=== PATIENT | male | born 1980 ===

== ENCOUNTER 2019-03-01 22:29 | Emergency (ER) | payer MEDICAID ==
[2019-03-01 23:09] VITALS: PULSE 62; RESP 18; O2SAT 98
[2019-03-01] MEDS ORDERED: Albuterol-Ipratrop 3 mg / 0.5 (3 ml) UD ONE ×2 (23:13→23:37)
--- NOTE | 2019-03-01 23:47 | C.PDOC ---
History Of Present Illness 38 year old male presents to the ED c/o SOB associated with productive cough that started today. Patient also reports having fever of 100.2. Patient is a smoker. Patient denies headache, dizziness, CP, palpitations, rash, abdominal pain, weakness, numbness. Time Seen by Provider: 03/01/19 22:59 Chief Complaint (Nursing): Shortness Of Breath History Per: Patient History/Exam Limitations: no limitations Onset/Duration Of Symptoms: Hrs Current Symptoms Are (Timing): Still Present Initiating Event: Upper Respiratory Illness Quality: Tightness Exacerbating Factor(s): Coughing Current Respiratory Medications: Albuterol Associated Symptoms: Productive Cough Recent travel outside of the [place]: No Additional History Per: Patient Past Medical History Reviewed: Historical Data, Nursing Documentation, Vital Signs Vital Signs: Last Vital Signs Temp 99.1 F 03/01/19 23:01 Pulse 62 03/01/19 23:01 Resp 18 03/01/19 23:01 BP 115/75 03/01/19 23:01 Pulse Ox 98 03/01/19 23:01 Primary Care Provider: Non [facility] Provider, - Medical History PMH: No Chronic Diseases Surgical History: No Surg Hx Family History: States: Unknown Family Hx - Social History Hx Alcohol Use: No Hx Substance Use: No Review Of Systems Constitutional: Positive for: Fever. Negative for: Chills ENT: Negative for: Nose Discharge, Nose Congestion, Throat Pain Respiratory: Positive for: Cough, Shortness of Breath. Negative for: Sputum, Wheezing Gastrointestinal: Negative for: Nausea, Vomiting, Abdominal Pain Skin: Negative for: Rash Neurological: Negative for: Headache, Dizziness Physical Exam - Physical Exam Appears: Non-toxic, No Acute Distress (NARD) Skin: Normal Color, Warm, Dry Head: Atraumatic, Normacephalic Eye(s): bilateral: Normal Inspection Neck: Normal ROM, Supple Chest: Symmetrical Cardiovascular: Rhythm Regular Respiratory: No Rales, Rhonchi (scattered), Wheezing (expiratory), Other (speaking full setences, good air entry) Gastrointestinal/Abdominal: Soft, No Tenderness, No Distention Extremity: Normal ROM, No Tenderness, No Swelling Neurological/Psych: Oriented x3, Normal Speech, Normal Cognition Gait: Steady ED Course And Treatment O2 Sat by Pulse Oximetry: 98 (ON RA) Pulse Ox Interpretation: Normal Medical Decision Making Medical Decision Making: Plan: * Carol bautista 2 * Prednisone 60 mg PO Patient reports feeling better after nebulizer treatment given, patient states he has an albuterol inhaler at home and was advised to use it. Disposition Counseled Patient/Family Regarding: Diagnosis, Need For Followup, Smoking Cessation - Disposition Referrals: [facility] [Outside] Disposition: HOME/ ROUTINE Disposition Time: 23:54 (]) Condition: IMPROVED Additional Instructions: SULAIMAN NAJERA, thank you for letting us take care of you today. Your provider was Lizz Salinas MD and you were treated for SOB/WHEEZING. The emergency medical care you received today was directed at your acute symptoms. If you were prescribed any medication, please fill it and take as directed. It may take several days for your symptoms to resolve. Return to the Emergency Department if your symptoms worsen, do not improve, or if you have any other problems. Please contact your doctor or call one of the physicians/clinics you have been referred to that are listed on the Patient Visit Information form that is includ ed in your discharge packet. Bring any paperwork you were given at discharge with you along with any medications you are taking to your follow up visit. Our treatment cannot replace ongoing medical care by a primary care provider outside of the emergency department. Thank you for allowing the [facility] team to be part of your care today. Prescriptions: predniSONE [Prednisone] 40 mg PO DAILY #10 tab Instructions: Acute Bronchitis, Adult (DC) Forms: [employer] (Tongan), General Discharge Instructions - POA Present On Arrival: None - Clinical Impression Clinical Impression: Bronchospasm with bronchitis, acute - Scribe Statement The provider has reviewed the documentation as recorded by the Scribe Francois Lara All medical record entries made by the Scribe were at my direction and p ersonally dictated by me. I have reviewed the chart and agree that the record accurately reflects my personal performance of the history, physical exam, medical decision making, and the department course for this patient. I have also personally directed, reviewed, and agree with the discharge instructions and disposition.
[2019-03-01] MEDS ORDERED: Albuterol-Ipratrop 3 mg / 0.5 (3 ml) UD INH STA ×2 (23:50→23:51)
[2019-03-02 04:20] VITALS: BP 118/82; TEMP 98.2
== END 2019-03-02 04:20 | disposition home or self-care (01) ==
LOC: C.ER 22:29
DX: J20.9 Acute bronchitis, unspecified (principal)